=== PATIENT | male | born 1945 | race Caucasian/White ===

== ENCOUNTER → 2016-07-06 | Outpatient (CLI) | payer BC ==
--- NOTE | 2016-07-06 16:56 | DIAGNOSTIC IMAGING REPORT ---
RIGHT HAND MIN 3 VIEWS ROUTINE CLINICAL HISTORY: HLA-B27 POSITIVE, LOW BACK PAIN, LUMBAR DISC DISEASE WITH RA Right pain COMPARISON: None. DISCUSSION: Moderate degenerative change of the interphalangeal joints throughout. Moderate degenerative change of the metacarpal phalangeal joints. Intercarpal joints show minimal degenerative change. No significant marginal erosions. No periarticular osteopenia. There is no evidence for soft tissue swelling. IMPRESSION: Moderate degenerative change. No acute process. Electronically signed by: Steve Chinchilla M.D. 07/06/2016 4:54 PM Dictated Date/Time: 07/06/2016 4:54 PM
--- NOTE | 2016-07-06 16:57 | DIAGNOSTIC IMAGING REPORT ---
LEFT HAND MIN 3 VIEWS ROUTINE CLINICAL HISTORY: HLA-B27 POSITIVE, LOW BACK PAIN, LUMBAR DISC DISEASE WITH RA pain COMPARISON: None. DISCUSSION: Mild to moderate degenerative changes of the interphalangeal joints throughout. No significant periventricular osteopenia. Several small nonspecific. Articular erosions of the proximal phalanges. No significant degenerative change of the wrist. Moderate hypertrophic change of the ulnar styloid. There is no evidence for soft tissue swelling. IMPRESSION: Mild/moderate nonspecific degenerative change. Electronically signed by: Steve Chinchilla M.D. 07/06/2016 4:55 PM Dictated Date/Time: 07/06/2016 4:55 PM
[2016-07-06 17:31] LABS: BASO % 0.7 %; BASO ABS # 0.07 K/uL (0-0.2); COMPLETE YES; EOS % 1.7 %; HEMATOCRIT 47.6 % (42-52); IG% 0.5 %; LYMPH % 18.7 %; LYMPH ABS # 1.87 K/uL (1.2-3.4); MEAN CELL VOLUME 84.5 fL (80-100); MEAN CORPUSCULAR HEMOGLOBIN 27.9 pg (25-34); MEAN PLATELET VOLUME 10.6 fL (7.4-10.4); MONO % 8.6 %; NEUT % 69.8 %; PLATELET COUNT 187 K/uL (130-400); RED BLOOD COUNT 5.63 M/uL (4.7-6.1); WHITE BLOOD COUNT 9.99 K/uL (4.8-10.8)
[2016-07-06 17:59] LABS: ALT/SGPT 36 U/L (12-78)
[2016-07-06 18:02] LABS: ALKALINE PHOSPHATASE 80 U/L (45-117); AST/SGOT 21 U/L (15-37); TOTAL IRON BINDING CAPACITY 338 mcg/dl (250-450)
[2016-07-10 07:07] LABS: ANTI-CENTROMERE AB <1.0 NEG AI (<1.0 NEG); ANTI-SS-A <1.0 NEG AI (<1.0 NEG); ANTI-SS-B <1.0 NEG AI (<1.0 NEG); DNA ds CRITHIDIA NEGATIVE (NEGATIVE); Sm Antibody <1.0 NEG AI (<1.0 NEG)
== END | disposition home or self-care (01) ==
LOC: C.RAD1850 16:36
PROVIDERS: ATTEND Internal Medicine Rheumatology
DX: M51.16 Intervertebral disc disorders with radiculopathy, lumbar region (principal); M54.5 Low back pain; Z15.89 Genetic susceptibility to other disease

== ENCOUNTER → 2016-07-13 | Outpatient (CLI) | payer BC ==
--- NOTE | 2016-07-13 15:57 | DIAGNOSTIC IMAGING REPORT ---
WHOLE BODY BONE SCAN HISTORY: Back pain M51.16 Lumbar disc disease with [id number] HLA-B27 posit RADIOTRACER: 25.27 mCi Tc-99m MDP STUDY/IMAGES: Planar anterior and posterior whole body imaging was performed 3 hours following the intravenous administration of radiotracer. COMPARISON: None. FINDINGS: Bilateral renal activity is present. Mild that should scoliosis of the thoracolumbar spine. Degenerative change medial joint compartment left knee. All remaining axial and appendicular components of the skeleton appear unremarkable. There is mild degenerative activity in the shoulders. IMPRESSION: Degenerative activity medial joint compartment left knee. Mild degenerative activity of the shoulders and left ankle. Otherwise negative study Electronically signed by: Steve Chinchilla M.D. 07/13/2016 3:55 PM Dictated Date/Time: 07/13/2016 3:51 PM
== END | disposition home or self-care (01) ==
LOC: C.NUCL 12:06
PROVIDERS: ATTEND Internal Medicine Rheumatology
DX: Z15.89 Genetic susceptibility to other disease (principal); M51.16 Intervertebral disc disorders with radiculopathy, lumbar region; M54.5 Low back pain

== ENCOUNTER → 2016-08-14 | Outpatient (CLI) | payer BC ==
--- NOTE | 2016-08-14 11:53 | DIAGNOSTIC IMAGING REPORT ---
PELVIS WITHOUT CONTRAST (MRI) CLINICAL HISTORY: M51.16 Lumbar disc disease with [id number] HLA-B27 positive, possible sacroiliitis. Numbness and tingling in the legs. COMPARISON STUDY: Sacral joints dated 01/29/2016, whole body bone scan dated 07/03/2016 FINDINGS: The study consists of a coronal T1 and coronal fat sat T2 weighted sequences. The patient was unable to tolerate further scanning due to severe pain. There is no evidence of pathologic marrow edema. There is no MRI evidence of sacroiliitis. There are no areas of marrow replacement to indicate a sacral neoplasm. There is mild atrophy in the right posterior parasacral muscles. IMPRESSION: 1. The patient was unable to tolerate the complete study 2. No evidence of sacroiliitis. 3. No evidence of pathologic sacral marrow replacement Electronically signed by: Lon Curran M.D. 08/14/2016 11:51 AM Dictated Date/Time: 08/14/2016 11:46 AM
== END | disposition home or self-care (01) ==
LOC: C.MRI 10:24
PROVIDERS: ATTEND Internal Medicine Rheumatology
DX: Z15.89 Genetic susceptibility to other disease (principal); M51.16 Intervertebral disc disorders with radiculopathy, lumbar region; M46.1 Sacroiliitis, not elsewhere classified